=== PATIENT | female | born 1985 | race Caucasian/White ===

== ENCOUNTER 2017-06-08 10:03 | Emergency (ER) | payer OTHER ==
[~2017-06-08] VITALS: Ht 165.1 cm; Wt 81.7 kg
[~2017-06-08 10:03] MED LIST: ACYCLOVIR200 MG PO; ACYCLOVIR400 MG PO; ADVAIR 100-501 EACH IH; BENTYL10 MG PO; CLINDAMYCIN HC300 MG PO; CLONAZEPAM0.5 MG PO; DOXYCYCLINE HY100 MG PO; FLOVENT DISKUS50 MCG IH; GLUCOPHAGE500 MG PO; ISENTRESS400 MG PO; KLOR-CON M1515 MEQ PO; LANSOPRAZOLE30 MG PO; METFORMIN HCL500 MG PO; METRONIDAZOLE500 MG PO; NOVOLIN R100 UNIT/1 INJ; NOVOLOG100 UNITS/; OMEPRAZOLE20 MG PO; PREVACID15 MG PO; PREVACID30 MG PO; PRILOSEC OTC20 MG PO; SUDAFED30 MG PO; TEGRETOL XR100 MG PO; TEGRETOL200 MG PO; TRIAMCINOLONE A15 G2 TOP; TRUVADA 200 MG1 EACH PO; VENTOLIN HFA18 GM IH; XARELTO10 MG PO; XARELTO15 MG PO; XARELTO20 MG PO; ZOFRAN ODT4 MG PO
[2017-06-08] MEDS ORDERED: ZYPREXA10 MG PO (10:31)
[2017-06-08] MEDS ORDERED: PRENATABS FA T1 EACH PO (10:33)
[2017-06-08] MEDS ORDERED: CARBAMAZEPINE100 M1 PO (10:33)
[2017-06-08] MEDS ORDERED: BENADRYL25 MG PO (10:33)
== END 2017-06-08 10:39 | disposition home or self-care (01) ==
LOC: ED 10:03
DX: Z00.8 Encounter for other general examination (principal)

== ENCOUNTER 2018-04-28 08:30 | Day surgery (SDC) | payer OTHER ==
[~2018-04-28] VITALS: Ht 165.1 cm; Wt 100.2 kg
[~2018-04-28 08:30] MED LIST changes: +ACYCLOVIR400 MG; +BENADRYL25 MG PO; +CARBAMAZEPINE100 M1 PO; +PRENATABS FA T1 EACH PO; +ZYPREXA10 MG PO
--- NOTE | 2018-04-28 13:45 | NUR ---
04/28/18 1345 Marisabel Roa 1333-PATIENT ARRIVED TO PACU ON 3L NC WEANED TO 2L NC O2 SAT 100% RR EVEN. SR. PATIENT LAYING LEFT LATERAL. 1340-PATIENT AWAKE DROWSY DENIES PAIN OR NAUSEA. WEANED TO RA O2 SAT 100% PATIENT PASSING FLATUS AND REPOSITIONING TO BACK. PATIENT REQUESTING TO GO TO [place] FOR FOOD DOESN'T HAVE MUCH FOOD AT HOME. PLAN TO TAKE [facility]AX[place] RIDE HOME.
--- NOTE | 2018-05-03 07:31 | OR ---
[facility] [address], [place] [address] Signed DATE OF OPERATION: 04/28/2018 SURGEON: Yvette Padilla MD PREOPERATIVE DIAGNOSES: 1. Known celiac disease. 2. Persistent diarrhea despite gluten free diet. POSTOPERATIVE DIAGNOSES: 1. Normal-appearing upper endoscopy except for small hiatal hernia. 2. Normal-appearing colon and ileum except for a small polyp of rectosigmoid (excised). PROCEDURES: 1. Esophagogastroduodenoscopy with biopsy. 2. Total colonoscopy to cecum with intubation of ileum and biopsies. 3. Cold morcellation polypectomy x1 of rectosigmoid. ANESTHESIA: Intravenous sedation propofol infusion, Taj Reynoso CRNA. INDICATION: This 32-year-old white woman is a patient of Dr. Rosales and Dr. Barlow and has several medical issues including long-standing epilepsy. She does have some mental status changes likely related to that and underlying depression and learning disability. She is known to have celiac disease as diagnosed by Dr. Owens at [facility] in 2010. She does maintain a gluten free diet, at least I think so and she thinks so. She is known to have bipolar disease and smokes on a daily basis five cigarettes a day. She has persistent diarrhea despite her gluten free diet. She is admitted at this time to undergo upper endoscopy to assess disease activity or celiac disease as well as colonoscopy to assess for other causes of diarrhea. The risks of bleeding, infection, and perforation were reviewed with her, she understands and wished to proceed. FINDINGS: On upper endoscopy, the esophagus, stomach, and duodenum looked normal overall. There was a small hiatal hernia. There was no esophagitis. The duodenum did not have an appearance of chronic inflammation or serrated mucosa. Biopsies were obtained throughout. On colonoscopy, the prep was good and complete colonoscopy to the cecum allowed for Electronically Signed By: YVETTE PADILLA MD 05/03/18 0731 PATIENT NAME: HERI KELLER OPERATIVE REPORT DATE OF : 83 REPORT #: [id number] PHYSICIAN: YVETTE PADILLA MD PCP: ERICA ROSALES DO REPORT IS CONFIDENTIAL AND NOT TO BE RELEASED WITHOUT AUTHORIZATION [facility] [address], [place] [address] Signed intubation of the ileum as well. The ileum was normal and biopsied. The colon was biopsied in the cecum and rectum. There was a small polyp most likely adenomatous at the rectosigmoid, which was excised as well. DESCRIPTION OF PROCEDURE: The patient was brought to the endoscopy suite, given topical Hurricaine spray hypopharyngeal anesthesia and in the lateral decubitus position given intravenous sedation by the strip catcher with propofol infusional technique using full cardiopulmonary monitoring. A bite block was placed. The Olympus video upper endoscope was passed in the hypopharynx. The vocal cords appeared normal. Scope was advanced to the esophagus throughout its length, it was normal. Scope was passed to the stomach, which was insufflated with air. There was no sign of bile or other problem. The antrum was normal as was the pylorus. The scope was passed through into the duodenum, which was normal in appearance. Biopsies were taken of the second and third portions. There was no serrated change or other mucosal abnormality to suggest celiac disease at this time. The scope was withdrawn and biopsies then taken of the antrum for both STEFANO and pathologic testing. Retroflexed view showed a small hiatal hernia. Scope was straightened, withdrawn and biopsies then taken of the distal esophagus and mid esophagus. The scope was then removed. Plans were made for colonoscopy. Digital rectal examination was normal. An Olympus video colonoscope was passed in the rectum and manipulated easily throughout the colon ultimately intubating the cecum. The ileocecal valve appeared normal as did the appendiceal orifice. With various manipulations, the ileocecal valve was intubated and scope passed several cm into the ileum, which appeared normal without signs of inflammatory bowel disease. Biopsies were taken nevertheless. The scope was withdrawn and biopsies then taken of the cecum. Careful withdrawal of scope showed no sign of abnormality into the rectosigmoid where small probably adenomatous polyp was noted. It was excised with cold morcellation technique completely. Retroflexed view of the rectum was relatively normal. Internal hemorrhoidal changes were noted. Biopsies were taken of the rectum as well. The scope was removed. The patient was taken to recovery room in good condition. CONCLUDING DIAGNOSES: Diarrhea of uncertain etiology. Compliance to gluten free diet uncertain, but certainly intended by patient. Disease activity of duodenitis, uncertain, but little if any inflammation noted on gross examination of duodenum at this time. Biopsies were pending. PLAN: Electronically Signed By: YVETTE PADILLA MD 05/03/18 0731 PATIENT NAME: HERI KELLER OPERATIVE REPORT DATE OF : 83 REPORT #: [id number] PHYSICIAN: YVETTE PADILLA MD PCP: ERICA ROSALES DO REPORT IS CONFIDENTIAL AND NOT TO BE RELEASED WITHOUT AUTHORIZATION [address] [address] Signed We will empirically give Questran 4 g p.o. b.i.d. to assess if there is any benefit to that medication. She will return to the ongoing care of Dr. Rosales in the meantime. I am happy to see her again upon referral from Dr. Rosales and I will review her pathology reports as well. MD MARY ANN Gardiner/ANGELLA /[id number] cc: MD Dr. Rik Albarado Copies: MARIUM BARLOW MD ~ Electronically Signed By: YVETTE PADILLA MD 05/03/18 0731 PATIENT NAME: HERI KELLER OPERATIVE REPORT DATE OF : 83 REPORT #: [id number] PHYSICIAN: YVETTE PADILLA MD PCP: ERICA ROSALES DO REPORT IS CONFIDENTIAL AND NOT TO BE RELEASED WITHOUT AUTHORIZATION
== END 2018-04-28 14:23 | disposition home or self-care (01) ==
LOC: DS 08:30 → OPS 08:30 → DS 10:15 → OPS 14:23
PROVIDERS: Surgery
PROC: 0DB28ZX Excision of Middle Esophagus, Via Natural or Artificial Opening Endoscopic, Diagnostic (ICD-10-PCS; 2018-04-28)
PROC: 0DB38ZX Excision of Lower Esophagus, Via Natural or Artificial Opening Endoscopic, Diagnostic (ICD-10-PCS; 2018-04-28)
PROC: 0DBH8ZX Excision of Cecum, Via Natural or Artificial Opening Endoscopic, Diagnostic (ICD-10-PCS; 2018-04-28)
PROC: 0DBE8ZX Excision of Large Intestine, Via Natural or Artificial Opening Endoscopic, Diagnostic (ICD-10-PCS; 2018-04-28)
PROC: 0DBB8ZX Excision of Ileum, Via Natural or Artificial Opening Endoscopic, Diagnostic (ICD-10-PCS; 2018-04-28)
PROC: 0DB98ZX Excision of Duodenum, Via Natural or Artificial Opening Endoscopic, Diagnostic (ICD-10-PCS; principal; 2018-04-28 10:15)
PROC: 0DB78ZX Excision of Stomach, Pylorus, Via Natural or Artificial Opening Endoscopic, Diagnostic (ICD-10-PCS; 2018-04-28 10:15)
DX: K63.5 Polyp of colon (principal); K29.50 Unspecified chronic gastritis without bleeding; K29.80 Duodenitis without bleeding; K44.9 Diaphragmatic hernia without obstruction or gangrene; K64.8 Other hemorrhoids; J45.909 Unspecified asthma, uncomplicated; F32.9 Major depressive disorder, single episode, unspecified; E11.9 Type 2 diabetes mellitus without complications; G40.909 Epilepsy, unspecified, not intractable, without status epilepticus; F17.210 Nicotine dependence, cigarettes, uncomplicated; K21.0 Gastro-esophageal reflux disease with esophagitis; Z88.5 Allergy status to narcotic agent; Z88.0 Allergy status to penicillin; Z91.041 Radiographic dye allergy status; Z79.899 Other long term (current) drug therapy; Z98.890 Other specified postprocedural states; Z79.84 Long term (current) use of oral hypoglycemic drugs
CPT/HCPCS: 88305; J2704; J7120

== ENCOUNTER 2019-03-06 07:38 | Emergency (ER) | payer OTHER ==
[~2019-03-06] VITALS: Ht 165.1 cm; Wt 105.2 kg
[2019-03-06] MEDS ORDERED: VITAMIN D250000 UNIT PO (07:52)
[2019-03-06] MEDS ORDERED: MEDROXYPROGESTE10 MG PO (07:52)
== END 2019-03-06 11:10 | disposition home or self-care (01) ==
LOC: ED 07:38
DX: M25.571 Pain in right ankle and joints of right foot (principal); F17.200 Nicotine dependence, unspecified, uncomplicated; Z88.0 Allergy status to penicillin; Z88.5 Allergy status to narcotic agent; Z91.040 Latex allergy status; Z88.8 Allergy status to other drugs, medicaments and biological substances; F31.9 Bipolar disorder, unspecified; Z79.899 Other long term (current) drug therapy
CPT/HCPCS: 71260; 73610; 80048; 84703; 85025; 85379; 93971; 99284-25

== ENCOUNTER 2024-08-24 12:00 | Emergency (ER) | payer OTHER ==
[~2024-08-24] VITALS: Ht 165.1 cm
--- NOTE | ~2024-08-24 | EKG ---
[facility] [address] [facility] [place], [place] [address] Draft EK completed, results pending confirmation PATIENT NAME: HERI KELLER Electrocardiogram DATE OF : 83 PHYSICIAN: PRELIMINARY REPORT #: [id number] REPORT IS CONFIDENTIAL AND NOT TO BE RELEASED WITHOUT AUTHORIZATION
[~2024-08-24 12:00] MED LIST changes: +MEDROXYPROGESTE10 MG PO; +ONDANSETRON ODT4 MG PO; +VITAMIN D250000 UNIT PO
--- OUTSIDE RECORDS SUMMARY | 2024-08-24 12:07 | XMS ---
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 ( 03/07/2019 ) [facility] VISIT COUNT (12 MO.) 3 [facility] 2 [facility] [place] 2 [facility] TOTAL 7 NOTE: Visits indicate total known visits. ED/UCC VISIT TRACKING (12 MO.) 08/24/2024 12:01 [facility] [place] TYPE: Emergency COMPLAINT: - MEDICAL CLEARANCE 08/18/2024 07:42 [facility] ([place]) TYPE: Emergency DIAGNOSES: - Manic episode, unspecified - Suicidal ideations - Chest Pain - confusion, shaking - confusion, shaking, SOB 04/15/2024 17:14 [facility] ([place]) TYPE: Emergency DIAGNOSES: - Body mass index [BMI] 31.0-31.9, adult - Cellulitis of abdominal wall - Homelessness unspecified - Obesity, unspecified - Other stimulant abuse, uncomplicated - Unspecified abdominal pain - Cellulitis 04/03/2024 07:15 [facility] ([place]) TYPE: Emergency DIAGNOSES: - Generalized anxiety disorder - Other psychoactive substance abuse, uncomplicated - Other stimulant abuse, uncomplicated - Anxiety 01/14/2024 04:18 [facility] [place] TYPE: Emergency DIAGNOSES: - Suicidal ideations - SI 12/21/2023 10:08 [facility] [place] TYPE: Emergency DIAGNOSES: - Acute embolism and thrombosis of unspecified deep veins of left proximal lower extremity - Schizoaffective disorder, unspecified 11/09/2023 10:45 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 - FDC (current) use of inhaled steroids - FDC (current) use of oral hypoglycemic drugs - Nausea - Nausea with vomiting, unspecified - Nicotine dependence, unspecified, uncomplicated - Other chcf (current) drug therapy - Other specific personality disorders - Post-traumatic stress disorder, unspecified - Unspecified asthma, uncomplicated - Unspecified chronic bronchitis INPATIENT VISIT TRACKING (12 MO.) 04/15/2024 17:14 [facility] ([place] [facility]) TYPE: Medical Surgical DIAGNOSES: - Anxiety disorder, unspecified - Bipolar disorder, unspecified - Body mass index [BMI] 31.0-31.9, adult - Cellulitis of abdominal wall - Chronic embolism and thrombosis of unspecified deep veins of unspecified distal lower extremity - Homelessness unspecified - Obesity, unspecified - Other stimulant abuse, uncomplicated - Schizophrenia, unspecified - Suicidal ideations - Type 2 diabetes mellitus without complications - Unspecified abdominal pain [email or web address]
[2024-08-24] MEDS ORDERED: OLANZapine 10 MG TABDIS PO ONE (12:45)
[2024-08-24] MEDS ORDERED: LORazepam 1 MG TAB PO ONE (12:45)
[2024-08-24 12:57] LABS: BILIRUBIN, URINE NEGATIVE (negative); BLOOD/HGB, URINE NEGATIVE (Negative); KETONE, URINE NEGATIVE (Negative); LEUK ESTERASE, URINE NEGATIVE (negative); NITRITE, URINE NEGATIVE (negative)
[2024-08-24 13:18] LABS: AMPHETAMINES, URINE POSITIVE (NEGATIVE); BARBITURATES, URINE NEGATIVE (NEGATIVE); BENZODIAZEPINE, URINE NEGATIVE (NEGATIVE); BUPRENORPHINE, URINE NEGATIVE (NEGATIVE); CANNABINOID, URINE NEGATIVE (NEGATIVE); COCAINE, URINE NEGATIVE (NEGATIVE); ECSTASY, URINE POSITIVE (NEGATIVE); FENTANYL, URINE NEGATIVE (NEGATIVE); METHADONE, URINE NEGATIVE (NEGATIVE); OPIATES, URINE NEGATIVE (NEGATIVE); OXYCODONE, URINE NEGATIVE (NEGATIVE); PHENCYCLIDINE, URINE NEGATIVE (NEGATIVE)
[2024-08-24] MEDS ORDERED: HALOPERIDOL LACTATE 5 MG/ML VIAL IM ONE (14:15)
[2024-08-24] MEDS ORDERED: diphenhydrAMINE HCL 50 MG/ML VIAL IM ONE (14:15)
[2024-08-24 14:24] LABS: BASOPHILS 0.3 % (0-2); EOSINOPHILS 2.5 % (0-6); HEMATOCRIT 33.3 % (35.0-50.0); HEMOGLOBIN 11.7 g/dL (12.0-18.0); LYMPHOCYTES 23.6 % (24-44); MCH 32.3 (27-36); MCHC 35.3 g/dl (30-36); MCV 91.6 fl (81-99); MONOCYTES 8.2 % (0-12); NEUTROPHILS 65.4 % (39-80); PLATELET COUNT 214 K/uL (140-440); RBC 3.63 M/ul (4.3-5.7)
[2024-08-24 14:46] LABS: ACETAMINOPHEN 0 ug/mL (10-30); ALBUMIN 3.5 g/dL (3.4-5.0); ALBUMIN/GLOBULIN RATIO 1.13 (1.1-2.4); ALCOHOL, MEDICAL <3 ng/dL (<3); ALKALINE PHOSPHATASE 67 U/L (46-116); ALT (SGPT) 16 U/L (14-59); ANION GAP 14.8 (7-21); AST (SGOT) 15 U/L (15-37); BILIRUBIN, TOTAL 0.6 ng/dL (0.2-1.0); BUN/CREATININE RATIO 14.49 (6.0-28.6); CALCIUM 8.1 mg/dL (8.5-10.1); CARBON DIOXIDE 22 mmol/L (21-32); CHLORIDE 105 mmol/L (98-107); CREATININE, SERUM 0.69 mg/dL (0.55-1.02); GLOMERULAR FILTRATION RATE,EST 112 mL/min (>60); POTASSIUM 3.8 mmol/L (3.5-5.1); PROTEIN, TOTAL 6.6 g/dL (6.4-8.2); SALICYLATE 1.7 mg/dL (2.8-20.0); TSH, 3RD GENERATION 2.523 uIU/mL (0.358-3.740); UREA NITROGEN 10 mg/dL (7-18)
[2024-08-24] MEDS ORDERED: CEPHALEXIN MONOHYDRATE 500 MG CAP PO ONE ×2 (16:30→20:00)
[2024-08-24] MEDS ORDERED: CEPHALEXIN MONOHYDRATE 500 MG CAP PO SCH (22:00)
[2024-08-25] MEDS ORDERED: OLANZapine 10 MG TABDIS PO SCH ×2 (09:00→21:00)
[2024-08-25] MEDS ORDERED: ONDANSETRON 4 MG TAB ODT SL ONE (17:30)
[2024-08-26] MEDS ORDERED: OLANZapine 10 MG TABDIS PO PRN (17:15)
[2024-08-26] MEDS ORDERED: OLANZapine 10 MG TAB PO SCH (21:00)
[2024-08-27 15:06] VITALS: BP 145/103
--- NOTE | 2024-08-27 20:59 | EKG ---
[facility] [address] [facility] [place] [address] Signed Sinus rhythm with short MO Otherwise normal ECG When compared with ECG of 15-OCT-2016 08:00, No significant change was found Confirmed by Jovi Pearce MD ([id number]) on 08/27/2024 8:59:00 PM Electronically Signed By: JOVI PEARCE DO 08/27/242058 PATIENT NAME: HERI KELLER Electrocardiogram DATE OF : 83 PHYSICIAN: JOVI PEARCE DO REPORT #: [id number] REPORT IS CONFIDENTIAL AND NOT TO BE RELEASED WITHOUT AUTHORIZATION
== END 2024-08-27 15:06 ==
LOC: ED 12:00
PROVIDERS: Emergency Medicine
DX: R45.1 Restlessness and agitation (principal); F15.10 Other stimulant abuse, uncomplicated; L03.012 Cellulitis of left finger; J44.89 Other specified chronic obstructive pulmonary disease; F31.9 Bipolar disorder, unspecified; F17.200 Nicotine dependence, unspecified, uncomplicated; Z88.0 Allergy status to penicillin; Z88.5 Allergy status to narcotic agent; Z88.8 Allergy status to other drugs, medicaments and biological substances; Z91.018 Allergy to other foods; Z79.84 Long term (current) use of oral hypoglycemic drugs; Z79.899 Other long term (current) drug therapy
CPT/HCPCS: 36415; 80053; 80307; 81003; 84443; 84703; 85025; A9270; A9270-GY; G0480; J1200; J1630; U0002